=== PATIENT | male | born 1970 | race Caucasian/White ===

== ENCOUNTER → 2017-06-21 | Outpatient (CLI) | payer OTHER ==
[~2017-06-21] MED LIST: /PANT40TA; COUMADIN
[2017-06-23 14:15] LABS: PSA TOTAL 0.8 ng/mL (0.0-4.0)
== END ==
LOC: M LAB 16:21
PROVIDERS: ATTEND Nurse Practitioner Women's Health
DX: R97.20 Elevated prostate specific antigen [PSA] (principal)
CPT/HCPCS: 36415; 81001; 84154; 87086; G0463

== ENCOUNTER → 2018-03-20 | Outpatient (CLI) | payer OTHER | LOC: M CARPUL 09:26 | DX: E78.2 Mixed hyperlipidemia (principal); E66.9 Obesity, unspecified; R97.20 Elevated prostate specific antigen [PSA]; F33.9 Major depressive disorder, recurrent, unspecified; G47.33 Obstructive sleep apnea (adult) (pediatric); M25.531 Pain in right wrist; K21.9 Gastro-esophageal reflux disease without esophagitis; M54.5 Low back pain; F43.12 Post-traumatic stress disorder, chronic | CPT/HCPCS: 93306 ==

== ENCOUNTER 2018-09-04 15:47 | Emergency (ER) | payer OTHER ==
[2018-09-04] MEDS: ACETAMINOPH W/CODEINE #3 TAB UD PO (17:46)
[2018-09-04] MEDS: GABAPENTIN 300 MG CAP PO (17:46)
[2018-09-04] MEDS: KETOROLAC 60 MG/2 ML VIAL (J1885) IM (17:47)
== END 2018-09-04 18:20 | disposition home or self-care (01) ==
LOC: M ED 15:47
DX: M79.604 Pain in right leg (principal); Z86.718 Personal history of other venous thrombosis and embolism; M54.9 Dorsalgia, unspecified; K21.9 Gastro-esophageal reflux disease without esophagitis; Z87.19 Personal history of other diseases of the digestive system; Z91.013 Allergy to seafood; Z79.899 Other long term (current) drug therapy
CPT/HCPCS: J1885

== ENCOUNTER 2018-10-31 10:19 | Day surgery (SDC) | payer OTHER ==
[~2018-10-31] VITALS: Ht 193 cm; Wt 135.4 kg
[~2018-10-31 10:19] MED LIST changes: +ACET30TAB PO; +DEXI60CA2 PO; +GABA-843 PO; +LEXA1TAB PO; +NS 1,000 ML IV ONE; +PRED20TA PO; +VITA50005 PO; +WELLTAB40 PO; +ZOLO25TA PO
[2018-10-31] MEDS ORDERED: PROPOFOL 200 MG/20 ML VIAL As Ordered ONE (11:18)
[2018-10-31] MEDS ORDERED: LIDOCAINE 2% INJ 100 MG/5 ML SDV (FOR ANES.) As Ordered ONE (11:18)
--- NOTE | 2018-10-31 11:20 | ROOR ---
Patient Name: Barrington House Procedure Date: 10/31/2018 10:55 AM Date of : 1970 Age: 48 Room: [facility] Gender: Male Note Status: Finalized Procedure: Colonoscopy Indications: Screening for colorectal malignant neoplasm Providers: DO Reshma Rosado MD: Kwesi Hansen Md Requesting Provider: Medicines: Propofol per Anesthesia Complications: No immediate complications. Procedure: Pre-Anesthesia Assessment: - Prior to the procedure, a History and Physical was performed, and patient medications and allergies were reviewed. The patient is competent. The risks and benefits of the procedure and the sedation options and risks were discussed with the patient. All questions were answered and informed consent was obtained. Patient identification and proposed procedure were verified by the physician, the nurse, the rework operator and the heat treat technician in the endoscopy suite. Mental Status Examination: alert and oriented. Airway Examination: normal oropharyngeal airway and neck mobility. Respiratory Examination: clear to auscultation. CV Examination: normal. Prophylactic Antibiotics: The patient does not require prophylactic antibiotics. Prior Anticoagulants: The patient has taken no previous anticoagulant or antiplatelet agents. ASA Grade Assessment: II - A patient with mild systemic disease. After reviewing the risks and benefits, the patient was deemed in satisfactory condition to undergo the procedure. The anesthesia plan was to use monitored anesthesia care (MAC). Immediately prior to administration of medications, the patient was re-assessed for adequacy to receive sedatives. The heart rate, respiratory rate, oxygen saturations, blood pressure, adequacy of pulmonary ventilation, and response to care were monitored throughout the procedure. The physical status of the patient was re-assessed after the procedure. The Colonoscope was introduced through the anus and advanced to the terminal ileum. The colonoscopy was performed without difficulty. The patient tolerated the procedure well. Findings: The perianal exam findings include non-thrombosed internal hemorrhoids and internal hemorrhoids that prolapse with straining, but spontaneously regress to the resting position (Grade II). The exam was otherwise without abnormality on direct and retroflexion views. Impression: - Non-thrombosed internal hemorrhoids and internal hemorrhoids that prolapse with straining, but spontaneously regress to the resting position (Grade II) found on perianal exam. - The examination was otherwise normal on direct and retroflexion views. - No specimens collected. Recommendation: - Patient has a contact number available for emergencies. The signs and symptoms of potential delayed complications were discussed with the patient. Return to normal activities tomorrow. Written discharge instructions were provided to the patient. - Repeat colonoscopy in 5-10 years for screening purposes. - Return to my office PRN. Louis Treadwell DO 10/31/2018 11:20:39 AM This report has been signed electronically. Number of Addenda: 0 Note Initiated On: 10/31/2018 10:55 AM Estimated Blood Loss: Estimated blood loss: none.
[2018-10-31 11:46] VITALS: BP 121/56
== END 2018-10-31 11:49 | disposition home or self-care (01) ==
LOC: M OPP 10:19
PROVIDERS: ATTEND Surgery
DX: Z12.11 Encounter for screening for malignant neoplasm of colon (principal); K64.1 Second degree hemorrhoids; K21.9 Gastro-esophageal reflux disease without esophagitis; G47.30 Sleep apnea, unspecified; Z79.899 Other long term (current) drug therapy; Z91.013 Allergy to seafood

== ENCOUNTER → 2019-02-18 | Outpatient (CLI) | payer OTHER ==
[~2019-02-18] MED LIST changes: -/PANT40TA; +ACET-716 PO; -ACET30TAB PO; -NS 1,000 ML IV ONE; +PROT1TAB2
--- NOTE | 2019-02-18 19:12 | REP ---
CHEST, TWO VIEWS: Two views of the chest are performed. There is mild cardiomegaly. I see no acute infiltrate. There is mild elevation of the right hemidiaphragm. Mediastinal silhouette is unremarkable. There are moderate degenerative changes of the spine. IMPRESSION: No acute infiltrate. Mild cardiomegaly. Electronically Signed by Louis Joseph MD 02/20/2019 10:15 A
== END ==
LOC: M LRY 15:42
PROVIDERS: ATTEND Physician Assistant
DX: I51.7 Cardiomegaly (principal)
CPT/HCPCS: 71046; 87880; G0463

== ENCOUNTER → 2019-02-18 | Outpatient (REF) | payer OTHER | LOC: M SFHCLERA 15:44 | PROVIDERS: ATTEND Physician Assistant | DX: J02.9 Acute pharyngitis, unspecified (principal) ==

== ENCOUNTER 2020-02-29 17:03 | Emergency (ER) | payer OTHER ==
[2020-02-29 17:14] VITALS: BP 160/92
[2020-02-29] MEDS ORDERED: MORPHINE 4 MG/ML 1ML VIAL/SYRINGE (J2270) IV ONE (17:30)
[2020-02-29] MEDS ORDERED: ONDANSETRON 4MG/2ML VIAL IV ONE (17:30)
[2020-02-29] MEDS ORDERED: NS 1,000 ML IV ONE (17:30)
[2020-02-29 17:48] LABS: BASO % 0.2 % (0.0-1.0); EOS # 0.2 10^3/uL (0.0-0.5); EOS % 1.4 % (0.0-3.0); HEMATOCRIT 43.6 % (42.0-52.0); HEMOGLOBIN 15.5 g/dl (13.5-17.5); LYMPH % 7.9 % (24.0-44.0); MEAN CORPUSCULAR HEMOGLOBIN 32.5 pg (27.0-33.0); MEAN CORPUSCULAR HGB CONC 35.6 g/dl (32.0-36.5); MEAN CORPUSCULAR VOLUME 91.4 fl (80.0-96.0); MONO # 0.6 10^3/uL (0.0-0.8); MONO % 4.6 % (0.0-5.0); NEUTROPHILS # 11.1 10^3/uL (1.5-8.5); NEUTROPHILS % 85.7 % (36.0-66.0); PLATELET COUNT, AUTOMATED 206 10^3/uL (150-450); RED BLOOD COUNT 4.77 10^6/uL (4.30-6.10); WHITE BLOOD COUNT 12.9 10^3/uL (4.0-10.0)
[2020-02-29 18:00] LABS: INR 1.09; PROTHROMBIN TIME 13.8 SECONDS (11.8-14.0)
--- NOTE | 2020-02-29 18:12 | REPVR ---
PROCEDURE INFORMATION: Exam: CT Abdomen And Pelvis Without Contrast Exam date and time: 02/29/2020 5:30 PM Age: 49 years old Clinical indication: Abdominal pain; Generalized; Additional info: Bowel obstruction TECHNIQUE: Imaging protocol: Computed tomography of the abdomen and pelvis without contrast. Radiation optimization: All CT scans at this facility use at least one of these dose optimization techniques: automated exposure control; mA and/or kV adjustment per patient size (includes targeted exams where dose is matched to clinical indication); or iterative reconstruction. COMPARISON: No relevant prior studies available. FINDINGS: Mediastinum: There is a small hiatal hernia. Liver: The liver is normal. Gallbladder and bile ducts: The gallbladder is contracted but otherwise normal. No calcified stones. Pancreas: The pancreas is normal. Spleen: The spleen is mildly enlarged, 14 cm.. No focal lesion. Adrenals: The adrenal glands are normal. Kidneys and ureters: There are 2 mm nonobstructive renal calculi. No hydronephrosis. Stomach and bowel: There is moderate gastric distension. There is moderate small bowel distension and distension of the colon. This extends to the rectum. No evidence of a definite change in caliber of the bowel to indicate obstruction. Proximal small bowel is mildly dilated compared to distal small bowel. Appendix: The appendix is normal. Intraperitoneal space: No free fluid or fluid collection. No free air. Vasculature: Unremarkable. No abdominal aortic aneurysm. Lymph nodes: Unremarkable. No enlarged lymph nodes. Bladder: The bladder is contracted but otherwise normal. Reproductive: Unremarkable as visualized. Bones/joints: Unremarkable. No acute fracture. Soft tissues: Unremarkable. IMPRESSION: 1. Moderate gastric, small bowel and colonic distension with no definite focal change in caliber to indicate a site of obstruction. This could represent ileus. Small bowel is slightly more dilated than the distal small bowel. Early obstruction cannot be completely excluded. 2. Small nonobstructive renal calculi. No obstructive calculus. 3. No acute inflammatory findings. Electronically signed by: Aniceto Saxena On 02/29/2020 18:12:13 PM
[2020-02-29 18:16] LABS: ALBUMIN 3.8 GM/DL (3.2-5.2); ALT/SGPT 36 U/L (12-78); BILIRUBIN,DIRECT 0.2 MG/DL (0.0-0.2); BLOOD UREA NITROGEN 15 MG/DL (7-18); CALCIUM LEVEL 8.7 MG/DL (8.5-10.1); CARBON DIOXIDE LEVEL 27 MEQ/L (21-32); CHLORIDE LEVEL 107 MEQ/L (98-107); CREATININE FOR GFR 1.23 MG/DL (0.70-1.30); GLOMERULAR FILTRATION RATE > 60.0 (>56); GLUCOSE, FASTING 146 MG/DL (70-100); LIPASE 146 U/L (73-393); POTASSIUM SERUM 3.9 MEQ/L (3.5-5.1); SODIUM LEVEL 140 MEQ/L (136-145); TOTAL PROTEIN 7.5 GM/DL (6.4-8.2)
== END 2020-02-29 18:49 | disposition home or self-care (01) ==
LOC: M ED 17:03
DX: K56.699 Other intestinal obstruction unspecified as to partial versus complete obstruction (principal); N20.0 Calculus of kidney; K44.9 Diaphragmatic hernia without obstruction or gangrene; I10 Essential (primary) hypertension; Z91.013 Allergy to seafood; Z79.899 Other long term (current) drug therapy
CPT/HCPCS: 74176; 80048; 80076; 83690; 85025; 85610; 96361; 96374; 96375; 99284; J2270; J2405

== ENCOUNTER 2020-06-22 18:46 | Emergency (ER) | payer OTHER ==
[~2020-06-22] VITALS: Ht 190.5 cm; Wt 134.1 kg
[2020-06-22 18:47] VITALS: BP 139/84
[2020-06-22] MEDS ORDERED: MOBI15TA PO (21:34)
--- NOTE | 2020-07-17 16:40 | REP ---
LEFT KNEE SERIES CLINICAL: Trauma/injury. TECHNIQUE: AP, lateral, bilateral oblique, and sunrise views of the left knee. FINDINGS: Age-related changes are appreciated. No acute fracture or dislocation. Small suprapatellar effusion cannot be excluded. IMPRESSION: No obvious acute fracture or dislocation. Cannot exclude small suprapatellar effusion. MTDD
== END 2020-06-22 21:47 | disposition home or self-care (01) ==
LOC: M ED 18:46
DX: S83.92XA Sprain of unspecified site of left knee, initial encounter (principal); X50.1XXA Overexertion from prolonged static or awkward postures, initial encounter; Y92.099 Unspecified place in other non-institutional residence as the place of occurrence of the external cause; Y93.9 Activity, unspecified; Y99.9 Unspecified external cause status; Z79.899 Other long term (current) drug therapy; Z91.013 Allergy to seafood

== ENCOUNTER → 2020-06-25 | Outpatient (REF) | payer OTHER ==
[~2020-06-25] MED LIST changes: +MOBI15TA PO
[2020-06-25 13:38] LABS: SOURCE, BODY FLUID GLUCOSE LFT KNEE
[2020-06-25 13:56] LABS: SOURCE, BODY FLUID LFT KNEE; SYNOVIAL FLUID COLOR ORANGE (YELLOW)
[2020-06-26 11:33] LABS: CRYSTALS, BODY FLUID CA PYROPHOSPHATE (NONE SEEN); SOURCE, BODY FLUID CRYSTALS LFT KNEE
[2020-06-26 14:27] LABS: BODY FLUID RHEUMATOID SCREEN POSITIVE (NEGATIVE)
[2020-06-26 14:28] LABS: MUCIN CLOT TEST 2+ (4+)
== END ==
LOC: M LAB REF 11:14
PROVIDERS: ATTEND Physician Assistant
DX: M25.562 Pain in left knee (principal)

== ENCOUNTER → 2020-11-20 | Outpatient (CLI) | payer OTHER ==
[~2020-11-20] MED LIST changes: +GABA-282 PO; -GABA-843 PO
--- NOTE | 2020-11-20 08:39 | REP ---
INDICATION: LUNG DENSITY COMPARISON: 04/13/2010 TECHNIQUE: Axial noncontrast images from the thoracic inlet to the upper abdomen with coronal and sagittal reformations. This CT examination was performed using the following dose reduction techniques: Automated exposure control, adjustment of mA and/or kv according to the patient's size, and use of iterative reconstruction technique. FINDINGS: The bilateral lung george are relatively well aerated, symmetric and clear. No acute consolidation, effusion, or pneumothorax. No significant nodule or mass lesion identified. Tracheobronchial tree is patent. No axillary, hilar, or mediastinal adenopathy. Thoracic aorta, pulmonary vasculature, and heart/pericardium are normal. Surrounding musculoskeletal structures are intact. Upper abdomen demonstrates Lisandra fundoplication. Bilateral adrenal glands are normal. IMPRESSION: Normal noncontrast chest CT. No acute mediastinal or pleuroparenchymal process appreciated. <Electronically signed by Adonay Melgoza > 11/20/20 [id number]
== END ==
LOC: M RAD 08:08
PROVIDERS: ATTEND Family Medicine
DX: R05 Cough (principal); R91.8 Other nonspecific abnormal finding of lung field

== ENCOUNTER → 2022-11-25 | Outpatient (CLI) | payer OTHER ==
[~2022-11-25] MED LIST changes: +E-Z-GAS II EFFERVESCENT PACKET (SODIUM BICARB./CITRIC ACID/SIMETHICONE) As Ordered ONE; +E-Z-HD 98% w/w 340GM SUSP BTL As Ordered ONE; +E-Z-PAQUE 96% w/w SUSP 176GM BTL As Ordered ONE
== END ==
LOC: M RAD 09:28
PROVIDERS: ATTEND Physician Assistant
DX: K21.9 Gastro-esophageal reflux disease without esophagitis (principal); R93.3 Abnormal findings on diagnostic imaging of other parts of digestive tract

== ENCOUNTER → 2022-11-28 | Outpatient (CLI) | payer OTHER ==
[~2022-11-28] MED LIST changes: -E-Z-GAS II EFFERVESCENT PACKET (SODIUM BICARB./CITRIC ACID/SIMETHICONE) As Ordered ONE; -E-Z-HD 98% w/w 340GM SUSP BTL As Ordered ONE; -E-Z-PAQUE 96% w/w SUSP 176GM BTL As Ordered ONE
== END ==
LOC: M RAD 11:36
PROVIDERS: ATTEND Surgery
DX: K30 Functional dyspepsia (principal)
CPT/HCPCS: 78264; A9541

== ENCOUNTER → 2023-03-15 | Outpatient (CLI) | payer OTHER | LOC: M RAD 06:26 | PROVIDERS: ATTEND Student in an Organized Health Care Education/Training Program | DX: R10.10 Upper abdominal pain, unspecified (principal); R14.0 Abdominal distension (gaseous); K76.0 Fatty (change of) liver, not elsewhere classified ==

== ENCOUNTER → 2023-03-15 | Outpatient (CLI) | payer OTHER | LOC: M RAD 06:28 | PROVIDERS: ATTEND Physician Assistant | DX: N50.89 Other specified disorders of the male genital organs (principal); N50.3 Cyst of epididymis; R10.10 Upper abdominal pain, unspecified; R14.0 Abdominal distension (gaseous); K76.0 Fatty (change of) liver, not elsewhere classified ==

== ENCOUNTER → 2023-06-28 | Outpatient (CLI) | payer OTHER | LOC: M RAD 15:32 | PROVIDERS: ATTEND Internal Medicine | DX: Z53.9 Procedure and treatment not carried out, unspecified reason (principal) ==

== ENCOUNTER → 2023-07-06 | Outpatient (CLI) | payer OTHER | LOC: M RAD 15:08 | PROVIDERS: ATTEND Surgery | DX: R10.11 Right upper quadrant pain (principal) | CPT/HCPCS: 78227; A9537 ==

== ENCOUNTER → 2023-08-18 | Outpatient (CLI) | payer OTHER | LOC: M PLAIMG 09:17 | PROVIDERS: ATTEND Family Medicine | DX: K80.50 Calculus of bile duct without cholangitis or cholecystitis without obstruction (principal); R16.1 Splenomegaly, not elsewhere classified ==

== ENCOUNTER 2023-09-08 08:20 | Emergency (ER) | payer OTHER ==
[~2023-09-08] VITALS: Ht 188 cm; Wt 147.5 kg
[2023-09-08] MEDS ORDERED: PROBCAP14 PO (09:15)
[2023-09-08] MEDS ORDERED: OSTE5TAB PO (09:15)
[2023-09-08] MEDS ORDERED: ASPI81CH33 PO (09:15)
[2023-09-08] MEDS ORDERED: ERGO500029 PO (09:15)
[2023-09-08] MEDS ORDERED: ROSU40TA4 PO (09:15)
[2023-09-08 10:46] LABS: BASO % 0.3 % (0.0-1.0); EOS # 0.2 10^3/uL (0.0-0.5); EOS % 2.2 % (0.0-3.0); HEMATOCRIT 41.8 % (42.0-52.0); HEMOGLOBIN 15.1 g/dl (13.5-17.5); LYMPH # 1.3 10^3/uL (1.5-5.0); MEAN CORPUSCULAR HEMOGLOBIN 33.1 pg (27.0-33.0); MEAN CORPUSCULAR HGB CONC 36.1 g/dl (32.0-36.5); MEAN CORPUSCULAR VOLUME 91.7 fl (80.0-96.0); MONO # 0.6 10^3/uL (0.0-0.8); NEUTROPHILS % 70.2 % (36.0-66.0); PLATELET COUNT, AUTOMATED 171 10^3/uL (150-450); RED BLOOD COUNT 4.56 10^6/uL (4.30-6.10); WHITE BLOOD COUNT 7.1 10^3/uL (4.0-10.0)
[2023-09-08 10:57] LABS: INR 1.08; PROTHROMBIN TIME 13.7 SECONDS (12.5-14.5)
[2023-09-08 10:59] LABS: PARTIAL THROMBOPLASTIN TIME 26.4 SECONDS (24.8-34.2)
[2023-09-08 11:11] LABS: BLOOD UREA NITROGEN 13 MG/DL (9-23); CALCIUM LEVEL 8.9 MG/DL (8.5-10.1); CARBON DIOXIDE LEVEL 26 MMOL/L (20-31); CHLORIDE LEVEL 107 MMOL/L (98-107); GLOMERULAR FILTRATION RATE > 60.0 (>56); GLUCOSE, FASTING 103 MG/DL (60-100); SODIUM LEVEL 140 MMOL/L (136-145)
[2023-09-08 11:16] VITALS: BP 139/78; TEMP 97.5; O2SAT 97
== END 2023-09-08 12:21 | disposition home or self-care (01) ==
LOC: M ED 09:21
DX: S76.811A Strain of other specified muscles, fascia and tendons at thigh level, right thigh, initial encounter (principal); X58.XXXA Exposure to other specified factors, initial encounter; Z79.899 Other long term (current) drug therapy

== ENCOUNTER → 2024-02-16 | Outpatient (CLI) | payer OTHER ==
[~2024-02-16] MED LIST changes: +ASPI81CH33 PO; +ERGO500029 PO; +OSTE5TAB PO; +PROBCAP14 PO; +ROSU40TA4 PO
== END ==
LOC: M PLAIMG 13:39
PROVIDERS: ATTEND Internal Medicine Cardiovascular Disease
DX: R94.31 Abnormal electrocardiogram [ECG] [EKG] (principal); I51.7 Cardiomegaly; R60.0 Localized edema

== ENCOUNTER → 2025-06-02 | Outpatient (CLI) | payer OTHER ==
[~2025-06-02] MED LIST changes: +GABA-1172 PO; -GABA-282 PO; -ROSU40TA4 PO; +ROSU40TA81 PO
== END ==
LOC: M SOG 07:04
PROVIDERS: ATTEND Orthopaedic Surgery
DX: M25.562 Pain in left knee (principal); M25.561 Pain in right knee

== ENCOUNTER → 2025-06-30 | Outpatient (CLI) | payer OTHER | LOC: M PLAIMG 08:47 | PROVIDERS: ATTEND Orthopaedic Surgery | DX: S76.101A Unspecified injury of right quadriceps muscle, fascia and tendon, initial encounter (principal); X58.XXXA Exposure to other specified factors, initial encounter; Y92.9 Unspecified place or not applicable; Y93.9 Activity, unspecified; Y99.9 Unspecified external cause status ==

== ENCOUNTER 2025-07-25 09:13 | Day surgery (SDC) | payer OTHER ==
[~2025-07-25] VITALS: Ht 193 cm; Wt 145.1 kg
[~2025-07-25 09:13] MED LIST changes: +CYCL-707 PO; +NITR0.4S14 SL; +TELM1TAB33 PO; +XARE20TA PO
[2025-07-25] MEDS ORDERED: LIDOCAINE 2% 100 MG/5 ML SDV (FOR ANES.) As Ordered ONE (10:56)
[2025-07-25 11:06] VITALS: TEMP 98.2
[2025-07-25 11:29] VITALS: BP 139/85; O2SAT 98
== END 2025-07-25 11:36 | disposition home or self-care (01) ==
LOC: M OPP 09:13
PROVIDERS: ATTEND Surgery
DX: Z12.11 Encounter for screening for malignant neoplasm of colon (principal); K64.1 Second degree hemorrhoids; K29.80 Duodenitis without bleeding; K22.89 Other specified disease of esophagus; R10.13 Epigastric pain; G47.30 Sleep apnea, unspecified; Z91.013 Allergy to seafood; Z79.01 Long term (current) use of anticoagulants; Z79.899 Other long term (current) drug therapy; Z86.718 Personal history of other venous thrombosis and embolism
CPT/HCPCS: 43239; 45378; 88305; J3010

== ENCOUNTER 2025-09-02 02:55 | Emergency (ER) | payer OTHER ==
[~2025-09-02] VITALS: Ht 193 cm; Wt 147.7 kg
[2025-09-02] MEDS: KETOROLAC 30 MG/ML 1 ML VIAL IV ONE (03:38)
[2025-09-02] MEDS: ONDANSETRON 4MG/2ML VIAL IV ONE (03:38)
[2025-09-02 03:55] LABS: BASO # 0.0 10^3/uL (0.0-0.2); BASO % 0.3 % (0.0-1.0); EOS # 0.3 10^3/uL (0.0-0.5); EOS % 3.0 % (0.0-3.0); LYMPH # 1.8 10^3/uL (1.5-5.0); LYMPH % 20.6 % (24.0-44.0); MONO # 0.8 10^3/uL (0.0-0.8); MONO % 8.6 % (2.0-8.0); NEUTROPHILS # 5.9 10^3/uL (1.5-8.5); NEUTROPHILS % 67.2 % (36.0-66.0); PLATELET COUNT, AUTOMATED 200 10^3/uL (150-450)
[2025-09-02 04:22] LABS: ALT/SGPT 32.0 U/L (7.0-40); AST/SGOT 38.0 U/L (<34); CALCIUM LEVEL 9.0 MG/DL (8.5-10.1); CARBON DIOXIDE LEVEL 25.0 MMOL/L (20-31); CHLORIDE LEVEL 103.0 MMOL/L (98-107); CREATININE FOR GFR 1.51 MG/DL (0.70-1.30); GLOMERULAR FILTRATION RATE 54.2 (>56); POTASSIUM SERUM 3.9 MMOL/L (3.5-5.1); SODIUM LEVEL 139.0 MMOL/L (136-145)
[2025-09-02 04:23] LABS: KETONE, URINE AUTO RFX NEGATIVE (NEGATIVE); LEUKOCYTE ESTERASE UR AUTO RFX NEGATIVE (NEGATIVE); MUCUS, URINE RFX SMALL (NEGATIVE); NITRITE, URINE AUTO RFX NEGATIVE (NEGATIVE); RBC, URINE AUTO RFX TNTC /HPF (0-3); SQUAM EPITHELIAL CELL UR AURFX 0 /HPF (0-6); WBC, URINE AUTO RFX 0 /HPF (0-3)
[2025-09-02] MEDS ORDERED: ONDA-282 PO (06:24)
[2025-09-02] MEDS ORDERED: TAMS-18 PO (06:24)
[2025-09-02 07:00] VITALS: BP 127/71; TEMP 97.8; O2SAT 97
[2025-09-02] MEDS: ONDANSETRON 4MG ORAL DISINTEGRATING TAB PO ONE (07:11)
[2025-09-02] MEDS: TAMSULOSIN 0.4 MG CAP PO ONE (07:11)
[2025-09-02] MEDS: traMADol 50 MG TAB (HOME DOSE PACK) PO ONE (07:12)
== END 2025-09-02 07:10 | disposition home or self-care (01) ==
LOC: M ED 02:55
DX: N20.0 Calculus of kidney (principal); N13.30 Unspecified hydronephrosis; I10 Essential (primary) hypertension; K21.9 Gastro-esophageal reflux disease without esophagitis; E78.5 Hyperlipidemia, unspecified; Z86.718 Personal history of other venous thrombosis and embolism; Z79.01 Long term (current) use of anticoagulants; Z79.899 Other long term (current) drug therapy; Z91.013 Allergy to seafood
CPT/HCPCS: 74176; 80048; 80076; 81001; 83605; 83690; 85025; 96374; 96375; 99284; J1885; J2405